=== PATIENT | male | born 1960 | race Hispanic/Latino ===

== ENCOUNTER 2017-01-14 10:28 | Emergency (ER) | payer MEDICAID, OTHER ==
[2017-01-14 12:02] LABS: BASO % 0.5 % (0.0-2.0); EOS # 0.1 K/uL (0.0-0.7); EOS % 1.1 % (0.0-4.0); HEMATOCRIT 39.9 % (35.0-51.0); LYMPH # 1.7 K/uL (1.0-4.3); LYMPH % 26.7 % (20.0-40.0); MEAN CELL VOLUME 90.9 fL (80.0-94.0); MEAN CORPUSCULAR HGB CONC 34.1 g/dL (33.0-37.0); MEAN PLATELET VOLUME 7.4 fL (7.2-11.7); MONO # 0.3 K/uL (0.0-0.8); MONO % 5.1 % (0.0-10.0); RED CELL DISTRIBUTION WIDTH 12.9 % (11.5-14.5)
[2017-01-14 12:05] LABS: WHITE BLOOD COUNT 6.4 K/uL (4.8-10.8)
[2017-01-14 12:09] LABS: CHLORIDE 95 mmol/L (98-107)
[2017-01-14 12:10] LABS: POTASSIUM 4.8 mmol/L (3.6-5.2); SODIUM 138 mmol/L (132-148)
[2017-01-14 12:12] LABS: AST/SGOT 36 U/L (17-59); BILIRUBIN,TOTAL 0.8 mg/dL (0.2-1.3); CARBON DIOXIDE 29 mmol/L (22-30); GFR AFRICAN-AMERICAN > 60
[2017-01-14 12:13] LABS: ALB/GLOB RATIO 1.3 (1.0-2.1); ALKALINE PHOSPHATASE 55 U/L (38-126); ALT/SGPT 28 U/L (21-72); BLOOD UREA NITROGEN 9 mg/dL (9-20); CALCIUM 9.3 mg/dl (8.6-10.4); GLUCOSE,RANDOM 117 mg/dL (75-110); TOTAL PROTEIN 8.3 g/dL (6.3-8.3)
--- NOTE | 2017-01-14 12:22 | C.PDOC ---
History Of Present Illness 56 y/o male presents to the ED with complains of several days history of feeling lightheaded and flushed/facial warmth. Pt also reports mild headache, pressure sensation. Pt has history of HTN diagnosed several years ago but does not take medications for it. Pt denies visual changes, facial droop, slurred speech, extremity weakness, sensory changes, gait changes, chest pain, SOB or any other complaints. Time Seen by Provider: 01/14/17 11:12 Chief Complaint (Nursing): High Blood Pressure History Per: Patient History/Exam Limitations: no limitations Onset/Duration Of Symptoms: Days Current Symptoms Are (Timing): Still Present Associated Symptoms: Headache. denies: Chest Pain, Blurred Vision Severity: Mild Recent travel outside of the [place]: No Past Medical History Reviewed: Historical Data, Nursing Documentation, Vital Signs Vital Signs: Last Vital Signs Temp 98.3 F 01/14/17 13:11 Pulse 80 01/14/17 13:11 Resp 17 01/14/17 13:11 BP 139/94 H 01/14/17 13:11 Pulse Ox 98 01/14/17 13:50 - Medical History PMH: Diabetes, HTN, Hyperlipidemia Family History: States: Unknown Family Hx - Social History Hx Tobacco Use: No Hx Alcohol Use: No Hx Substance Use: No - Immunization History Hx Tetanus Toxoid Vaccination: No Hx Influenza Vaccination: No Hx Pneumococcal Vaccination: No Review Of Systems Except As Marked, All Systems Reviewed And Found Negative. Constitutional: Negative for: Fever Eyes: Negative for: Vision Change Cardiovascular: Negative for: Chest Pain Respiratory: Negative for: Cough, Shortness of Breath Gastrointestinal: Negative for: Vomiting Neurological: Positive for: Headache, Dizziness (lightheaded). Negative for: Weakness, Numbness, Change in Speech Physical Exam - Physical Exam Appears: Non-toxic, No Acute Distress, Other (overweight) Skin: Warm, Dry, No Rash, Other (face red/flushed) Head: Atraumatic, Normacephalic Eye(s): bilateral: PERRL, EOMI Nose: Normal Oral Mucosa: Moist Neck: Normal ROM, Supple Chest: Symmetrical Cardiovascular: Rhythm Regular, No Murmur Respiratory: Normal Breath Sounds, No Rales, No Rhonchi, No Wheezing Gastrointestinal/Abdominal: Soft Extremity: Normal ROM, No Pedal Edema Extremity: Bilateral: Atraumatic Neurological/Psych: Oriented x3, Normal Speech, Normal Cognition, Normal Cranial Nerves, Normal Motor, Normal Sensation, Other (finger to nose normal) Gait: Steady ED Course And Treatment - Laboratory Results Result Diagrams: 01/14/17 11:58 01/14/17 11:58 O2 Sat by Pulse Oximetry: 98 (on room air) Pulse Ox Interpretation: Normal Progress Note: Plan: Labs, norvasc, IV fluids Disposition Counseled Patient/Family Regarding: Studies Performed, Diagnosis, Need For Followup, Rx Given - Disposition Referrals: Ty Cason MD [Medical Doctor] - Disposition: HOME/ ROUTINE Disposition Time: 13:50 Condition: STABLE Additional Instructions: FOLLOW UP WITH YOUR DOCTOR IN 1-2 DAYS USE MEDICATION EVERY DAY RETURN TO ER IF SYMPTOMS WORSEN Prescriptions: amLODIPine [Norvasc] 5 mg PO DAILY #30 tab Instructions: Hypertension (ED) Print Language: FAROESE - POA Present On Arrival: None - Clinical Impression Clinical Impression: Hypertension - Scribe Statement The provider has reviewed the documentation as recorded by the Jerson Wallis Provider Attestation: All medical record entries made by the Jerson were at my direction and personally dictated by me. I have reviewed the chart and agree that the record accurately reflects my personal performance of the history, physical exam, medical decision making, and the department course for this patient. I have also personally directed, reviewed, and agree with the discharge instructions and disposition.
[2017-01-14 13:12] VITALS: BP 139/94; PULSE 80; RESP 17; TEMP 98.3
[2017-01-14 13:20] VITALS: O2SAT 98
== END 2017-01-14 14:41 | disposition home or self-care (01) ==
LOC: C.ER 10:28
DX: I10 Essential (primary) hypertension (principal)

== ENCOUNTER 2017-02-08 21:55 | Emergency (ER) | payer MEDICAID, OTHER ==
[2017-02-08 22:04] VITALS: BP 173/79; PULSE 86; RESP 18; TEMP 97.6; O2SAT 98
[2017-02-08] MEDS ORDERED: Alum-Mag Hydrox-Simethicone Susp (30 mL) PO STA (22:56)
[2017-02-08] MEDS ORDERED: Alum-Mag Hydrox-Simethicone Susp (30 mL) ONE (23:03)
--- NOTE | 2017-02-08 23:24 | C.PDOC ---
History Of Present Illness Patient is a 56 year old male who presents to the ER with a complaint of having a salty taste in his mouth for the past 3 days. Patient admits to eating salty foods. Patient states he has an appointment with Dr. Telles on Friday. Denies bleeding from his gums, coughing up blood, abdominal pain, nausea, vomiting, diarrhea, SOB, and chest pain. Patient sts he had headache earlier today that completely resolved upon arrival to ED. Time Seen by Provider: 02/08/17 22:10 Chief Complaint (Nursing): Headache History Per: Patient History/Exam Limitations: no limitations Onset/Duration Of Symptoms: Days (3) Current Symptoms Are (Timing): Gone Severity: None Pain Scale Rating Of: 0 Quality: "Pain" Preceeding Symptoms: denies: Visual Disturbances, Known Migraine Symptoms Associated Symptoms: denies: Photophobia, Blurred Vision, Nausea, Vomiting, Extremity Weakness Past Medical History Reviewed: Historical Data, Nursing Documentation, Vital Signs Vital Signs: Last Vital Signs Temp 97.6 F 02/08/17 21:59 Pulse 86 02/08/17 21:59 Resp 18 02/08/17 21:59 BP 173/79 H 02/08/17 21:59 Pulse Ox 98 02/09/17 01:31 - Medical History PMH: Diabetes, HTN, Hyperlipidemia Surgical History: No Surg Hx Family History: States: Unknown Family Hx - Social History Hx Tobacco Use: No Hx Alcohol Use: Yes Hx Substance Use: No - Immunization History Hx Tetanus Toxoid Vaccination: No Hx Influenza Vaccination: No Hx Pneumococcal Vaccination: No Review Of Systems Except As Marked, All Systems Reviewed And Found Negative. Constitutional: Negative for: Fever, Chills ENT: Negative for: Other (Bleeding from gums, coughing up blood) Cardiovascular: Negative for: Chest Pain Respiratory: Negative for: Cough, Shortness of Breath Gastrointestinal: Negative for: Nausea, Vomiting, Abdominal Pain, Diarrhea Physical Exam - Physical Exam Appears: Well, Non-toxic Skin: Normal Color, Warm, Dry Head: Atraumatic, Normacephalic Eye(s): bilateral: Normal Inspection Oral Mucosa: Moist Tongue: Normal Appearing, No Laceration, No Bleeding Gingiva: Normal Appearing, No Erythema, No Bleeding Throat: Normal, No Erythema, No Exudate Neck: Normal, Normal ROM Gastrointestinal/Abdominal: Soft, No Tenderness Neurological/Psych: Oriented x3, Normal Speech, Normal Cognition, Normal Motor, Normal Sensation ED Course And Treatment O2 Sat by Pulse Oximetry: 98 (Room air) Pulse Ox Interpretation: Normal Progress Note: Maalox administered. On reexamination patient says taste improved , ordered to follow up with Dr. Telles on friday as scheduled. Disposition - Disposition Referrals: Shaik Telles MD [Primary Care Provider] - Disposition: HOME/ ROUTINE Disposition Time: 23:27 Condition: IMPROVED Additional Instructions: Follow up with your PMD within 1-2 days. Return to ED if feel worse. Prescriptions: Famotidine [Pepcid] 20 mg PO BID #20 tab Instructions: Famotidine (By mouth) - Clinical Impression Clinical Impression: Abnormal taste in mouth - Scribe Statement The provider has reviewed the documentation as recorded by the Scribe Som Peoples All medical record entries made by the Scribe were at my direction and personally dictated by me. I have reviewed the chart and agree that the record accurately reflects my personal performance of the history, physical exam, medical decision making, and the department course for this patient. I have also personally directed, reviewed, and agree with the discharge instructions and disposition.
== END 2017-02-08 23:38 | disposition home or self-care (01) ==
LOC: SUPCPDRO 21:55 → C.ER 21:55
DX: R43.9 Unspecified disturbances of smell and taste (principal)

== ENCOUNTER 2017-08-22 19:39 | Emergency (ER) | payer MEDICAID, OTHER ==
[2017-08-22 20:05] VITALS: TEMP 97.9
--- NOTE | 2017-08-22 21:48 | C.PDOC ---
History Of Present Illness 56 year old male with a Hx of diabetes and gout who presents to the ER with a complaint of a sudden onset of left heel pain that began this morning. Patient states the pain feels similar to previous gout attacks, he took gabapentin and allopurinol with no relief from the pain. Denies fever, trauma, weakness, numbness, rash, wounds, or insect bites. Time Seen by Provider: 08/22/17 20:23 Chief Complaint (Nursing): Lower Extremity Problem/Injury History Per: Patient History/Exam Limitations: no limitations Onset/Duration Of Symptoms: Hrs, Sudden Onset Current Symptoms Are (Timing): Still Present Recent travel outside of the [place]: No - Ankle/Foot Description Of Injury: denies: Fell, Struck With Object, Struck Against Object, Twisted, Laceration Past Medical History Reviewed: Historical Data, Nursing Documentation, Vital Signs Vital Signs: Last Vital Signs Temp 97.9 F 08/22/17 20:00 Pulse 74 08/22/17 21:54 Resp 16 08/22/17 21:54 BP 132/78 08/22/17 21:54 Pulse Ox 99 08/22/17 22:17 - Medical History PMH: Diabetes, HTN, Hyperlipidemia Surgical History: No Surg Hx Family History: States: Unknown Family Hx - Social History Hx Tobacco Use: No Hx Alcohol Use: Yes Hx Substance Use: No - Immunization History Hx Tetanus Toxoid Vaccination: No Hx Influenza Vaccination: No Hx Pneumococcal Vaccination: No Review Of Systems Constitutional: Negative for: Fever, Chills Musculoskeletal: Positive for: Foot Pain Skin: Negative for: Rash Neurological: Negative for: Weakness, Numbness Physical Exam - Physical Exam Appears: Non-toxic, No Acute Distress Skin: Warm, Dry, No Rash Head: Atraumatic, Normacephalic Eye(s): bilateral: Normal Inspection Oral Mucosa: Moist Extremity: Tenderness (Left heel with swelling and erythema), Capillary Refill ( <2 seconds), Other (No wounds, drainage, rash, induration, or fluctuance.) Pulses: Left Dorsalis Pedis: Normal, Right Dorsalis Pedis: Normal Neurological/Psych: Oriented x3, Normal Speech, Normal Cognition, Normal Motor, Normal Sensation ED Course And Treatment O2 Sat by Pulse Oximetry: 99 (Room air) Pulse Ox Interpretation: Normal Medical Decision Making Medical Decision Making: Toradol, prednisone, and ultram administered. On reevaluation, patient reports improvement of pain, ambulatory in the ED with steady gait. Will discharge home with instructions to follow up with PMD. Disposition - Disposition Referrals: Shaik Telles MD [Staff Provider] - Alexandro Clifton MD [Staff Provider] - Disposition: HOME/ ROUTINE Disposition Time: 21:45 Condition: GOOD Additional Instructions: Follow up with the medical doctor within 1-2 days. return if worsened. Prescriptions: Indomethacin [Indocin] 50 mg PO BID #20 cap predniSONE [Prednisone] 20 mg PO BID #10 tab traMADol [Ultram] 50 mg PO Q6 PRN #10 tab PRN Reason: Pain Instructions: Gout (ED) Forms: [employer] (Khmer), Work Excuse - Clinical Impression Clinical Impression: Gout - PA / COAT AGENT / Resident Statement MD/DO has reviewed & agrees with the documentation as recorded. - Scribe Statement The provider has reviewed the documentation as recorded by the Scribsteve Peoples All medical record entries made by the Scribe were at my direction and personally dictated by me. I have reviewed the chart and agree that the record accurately reflects my personal performance of the history, physical exam, medical decision making, and the department course for this patient. I have also personally directed, reviewed, and agree with the discharge instructions and disposition.
[2017-08-22 21:54] VITALS: BP 132/78; PULSE 74; RESP 16
[2017-08-22 22:07] VITALS: O2SAT 99
== END 2017-08-22 21:54 | disposition home or self-care (01) ==
LOC: C.ER 19:39
DX: M10.9 Gout, unspecified (principal)
CPT/HCPCS: 96372; 99283; J1885

== ENCOUNTER 2018-08-30 17:01 | Emergency (ER) | payer SELFPAY ==
[2018-08-30 17:06] VITALS: BP 183/88; PULSE 90; TEMP 97.5; O2SAT 100
--- NOTE | 2018-08-30 17:16 | C.PDOC ---
History Of Present Illness 57 year old male presents to the ED for evaluation of gurgling abdominal sounds and liquid stools since yesterday. Patient notes he had Setsw[employer] food for dinner last night and leftovers for lunch today. Patient also had a few burritos, coffee, and a large bottle of prune juice for breakfast. Patient also had hamburgers for [employer] prior to arrival. Patient notes he sometimes has acid reflux symptoms and has had multiple visits for chest discomfort, all unremarkable. 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 Patient also admits to drinking 6 beers daily. Patient resides with his daughter and grand daughter, notes his recently . Patient denies fever, chills, back pain. Time Seen by Provider: 08/30/18 17:08 Chief Complaint (Nursing): Abdominal Pain History Per: Patient History/Exam Limitations: no limitations Onset/Duration Of Symptoms: Hrs Current Symptoms Are (Timing): Still Present Associated Symptoms: Other (liquid stools ). denies: Fever, Chills Additional History Per: Patient Past Medical History Reviewed: Historical Data, Nursing Documentation, Vital Signs Vital Signs: Last Vital Signs Temp 97.5 F L 08/30/18 17:04 Pulse 90 08/30/18 17:04 Resp 18 08/30/18 17:04 BP 183/88 H 08/30/18 17:04 Pulse Ox 100 08/30/18 17:04 - Medical History PMH: Diabetes, HTN, Hyperlipidemia Surgical History: No Surg Hx Family History: States: Unknown Family Hx - Social History Hx Tobacco Use: No Hx Alcohol Use: Yes Hx Substance Use: No - Immunization History Hx Tetanus Toxoid Vaccination: No Hx Influenza Vaccination: No Hx Pneumococcal Vaccination: No Physical Exam - Physical Exam Appears: Non-toxic, No Acute Distress Skin: Normal Color, Warm, Dry Head: Atraumatic, Normacephalic Eye(s): bilateral: Normal Inspection Oral Mucosa: Moist Neck: Supple Chest: Symmetrical, No Deformity, No Tenderness Cardiovascular: Rhythm Regular, No Murmur Respiratory: Normal Breath Sounds, No Rales, No Rhonchi, No Wheezing, Other (+obese abdomen, negative Murphty's sign, negative McBurney's point tenderness ) Extremity: Normal ROM, Capillary Refill (less than 2 seconds ) Neurological/Psych: Oriented x3, Normal Speech, Normal Cognition ED Course And Treatment O2 Sat by Pulse Oximetry: 100 (on RA) Pulse Ox Interpretation: Normal Progress Note: Maalox PO and Pepcid PO given. Medical Decision Making Medical Decision Making: indigestion poor diet based on [employer]wana food, [employer], and fast-food burritos BLAND diet for 2 days power walk 5 days/week. Disposition Doctor Will See Patient In The: Office Counseled Patient/Family Regarding: Studies Performed, Diagnosis - Disposition Referrals: [facility] [Outside] [employer] [facility] [Outside] [facility] [Outside] Disposition: HOME/ ROUTINE Disposition Time: 17:16 Condition: GOOD Additional Instructions: STOP living on a diet based on fast-foods 7 fresh fruits and vegetables/day Pepcid 20 mg @ night to lower your stomach acid- probably GERD 45 minute power-walk 5 days/week eat NOTHING fried. Follow-up in our outpatient [facility] for further eval as needed Instructions: Acid Reflux (Gastroesophageal Reflux Disease) During , Gas and Bloating Forms: [employer] (Uzbek) - Clinical Impression Clinical Impression: Abdominal bloating - Scribe Statement The provider has reviewed the documentation as recorded by the Scribe (Juli Ferreira) Provider Attestation: All medical record entries made by the Scribe were at my direction and personally dictated by me. I have reviewed the chart and agree that the record accurately reflects my personal performance of the history, physical exam, medical decision making, and the department course for this patient. I have also personally directed, reviewed, and agree with the discharge instructions and disposition.
[2018-08-30] MEDS ORDERED: Alum-Mag Hydrox-Simethicone Susp (30 mL) PO STA (17:22)
[2018-08-30] MEDS ORDERED: Alum-Mag Hydrox-Simethicone Susp (30 mL) ONE (17:26)
[2018-08-30 17:37] VITALS: RESP 16
== END 2018-08-30 17:37 | disposition home or self-care (01) ==
LOC: C.ER 17:01
DX: R14.0 Abdominal distension (gaseous) (principal)

== ENCOUNTER 2018-09-20 13:33 | Emergency (ER) | payer MEDICAID ==
[2018-09-20 14:16] VITALS: TEMP 98.2; O2SAT 99
[2018-09-20] MEDS ORDERED: Sodium Chloride 0.9% 1,000 ML IV ONE (14:50)
--- NOTE | 2018-09-20 14:54 | C.PDOC ---
History Of Present Illness 57 y/o male presents to ED c/o abdominal pain described as "quezzy" since early this month. Pt was seen in the ER on 08/30/18 and states he has been having this abdominal pain since that time. Notes he has not followed up with his PMD yet. Denies n/v/d, or fever. Time Seen by Provider: 09/20/18 14:47 Chief Complaint (Nursing): Abdominal Pain History Per: Patient History/Exam Limitations: no limitations Past Medical History Reviewed: Historical Data, Nursing Documentation, Vital Signs Vital Signs: Last Vital Signs Temp 98.2 F 09/20/18 14:13 Pulse 71 09/20/18 14:13 Resp 20 09/20/18 14:13 BP 186/95 H 09/20/18 14:13 Pulse Ox 99 09/20/18 14:13 - Medical History PMH: Diabetes, HTN, Hyperlipidemia Family History: States: Unknown Family Hx - Social History Hx Tobacco Use: No Hx Alcohol Use: Yes Hx Substance Use: No - Immunization History Hx Tetanus Toxoid Vaccination: No Hx Influenza Vaccination: No Hx Pneumococcal Vaccination: No Review Of Systems Except As Marked, All Systems Reviewed And Found Negative. Constitutional: Negative for: Fever, Chills Gastrointestinal: Positive for: Abdominal Pain. Negative for: Nausea, Vomiting, Diarrhea, Constipation Genitourinary: Negative for: Dysuria, Frequency, Hematuria Musculoskeletal: Negative for: Back Pain Physical Exam - Physical Exam Appears: Non-toxic, No Acute Distress Skin: Normal Color, Warm, Dry Head: Atraumatic, Normacephalic Eye(s): bilateral: Normal Inspection Oral Mucosa: Moist Neck: Normal ROM, Supple Chest: Symmetrical Cardiovascular: Rhythm Regular, No Murmur Respiratory: Normal Breath Sounds, No Rales, No Rhonchi, No Wheezing Gastrointestinal/Abdominal: Soft, Tenderness (minimal epigastric), No Distention, No Guarding, No Rebound Back: No CVA Tenderness Extremity: Normal ROM Neurological/Psych: Oriented x3, Normal Speech ED Course And Treatment - Laboratory Results Result Diagrams: 09/20/18 15:18 09/20/18 15:18 O2 Sat by Pulse Oximetry: 99 (RA) Pulse Ox Interpretation: Normal Medical Decision Making Medical Decision Making: abd pain suspect gastrits pud gastritis gerd Plan: Blood work Urinalysis Protonix Zofran IV fluids labs neg. symptoms resolved in er. no loewr abd pain. no rlq ttp. advise outpt fu and return precautions Disposition - Disposition Referrals: [facility] [Outside] [facility] [Outside] Igor Hernandez [Staff Provider] - Disposition: HOME/ ROUTINE Disposition Time: 16:00 Condition: STABLE Additional Instructions: please follow up with specialist. yo u will need further testing as an outpatient. return to any er with worsening symptoms or concerns. return immediately with any worsening. Prescriptions: Famotidine [Pepcid] 20 mg PO DAILY #20 tab Instructions: Acute Abdomen (Belly Pain) Forms: [employer] (Polish) - Clinical Impression Clinical Impression: Abdominal pain - Scribe Statement The provider has reviewed the documentation as recorded by the Scribe KP All medical record entries made by the Scribe were at my direction and personally dictated by me. I have reviewed the chart and agree that the record accurately reflects my personal performance of the history, physical exam, medical decision making, and the department course for this patient. I have also personally directed, reviewed, and agree with the discharge instructions and disposition.
[2018-09-20] MEDS ORDERED: Sodium Chloride 0.9% 1,000 ML ONE (15:12)
[2018-09-20 15:28] LABS: BASO % 0.6 % (0.0-2.0); EOS # 0.1 K/uL (0.0-0.7); EOS % 1.5 % (0.0-4.0); HEMOGLOBIN 13.6 g/dL (12.0-18.0); LYMPH # 1.7 K/uL (1.0-4.3); LYMPH % 26.1 % (20.0-40.0); MEAN CELL VOLUME 93.5 fL (80.0-94.0); MEAN CORPUSCULAR HEMOGLOBIN 32.8 pg (27.0-31.0); MEAN CORPUSCULAR HGB CONC 35.1 g/dL (33.0-37.0); MONO # 0.4 K/uL (0.0-0.8); MONO % 6.9 % (0.0-10.0); NEUT # 4.1 K/uL (1.8-7.0); NEUT % 64.9 % (50.0-75.0); NRBC % 0.1 % (0.0-2.0); RBC 4.14 Mil/uL (4.40-5.90); RED CELL DISTRIBUTION WIDTH 12.5 % (11.5-14.5); WHITE BLOOD COUNT 6.4 K/uL (4.8-10.8)
[2018-09-20 15:29] LABS: SQUAMOUS EPITHIAL 1 /hpf (0-5); URINE BILIRUBIN NEGATIVE (NEGATIVE); URINE BLOOD NEGATIVE (NEGATIVE); URINE CLARITY Clear (Clear); URINE COLOR Yellow (YELLOW); URINE GLUCOSE (UA) NORMAL (Normal); URINE LEUKOCYTE ESTERASE NEG Leu/uL (Negative); URINE PROTEIN NEGATIVE (NEGATIVE); URINE UROBILINOGEN NORMAL mg/dL (0.2-1.0)
[2018-09-20 15:36] LABS: PROTHROMBIN TIME 10.9 SECONDS (9.7-12.2)
[2018-09-20 15:41] LABS: ALB/GLOB RATIO 1.4 (1.0-2.1); ALBUMIN 4.4 g/dL (3.5-5.0); BLOOD UREA NITROGEN 16 mg/dL (9-20); CALCIUM 9.2 mg/dl (8.6-10.4); GFR NON-AFRICAN AMERICAN > 60; LIPASE 42 U/L (23-300)
[2018-09-20 15:49] LABS: ALT/SGPT 22 U/L (21-72); AST/SGOT 33 U/L (17-59)
[2018-09-20 16:07] VITALS: BP 156/84; PULSE 66; RESP 18
== END 2018-09-20 16:15 | disposition home or self-care (01) ==
LOC: C.ER 13:33
DX: R10.9 Unspecified abdominal pain (principal); E11.9 Type 2 diabetes mellitus without complications; E78.5 Hyperlipidemia, unspecified; I10 Essential (primary) hypertension
CPT/HCPCS: 80053; 81001; 83690; 85025; 85610; 85730; 96361; 96374; 96375; 99285; C9113; J2405; J7030